=== PATIENT | male | born 1955 | race Caucasian/White ===

== ENCOUNTER 2019-01-29 23:54 | Emergency (ER) | payer OTHER ==
[~2019-01-29] VITALS: Ht 175.3 cm; Wt 86.2 kg
[2019-01-29 23:54] VITALS: BP 225/102
[~2019-01-29 23:54] MED LIST: HUM SUBQ
--- NOTE | 2019-01-29 23:54 | NUR ---
PT CONCETTA ALS. TAKEN TO BED 1
--- NOTE | 2019-01-30 00:10 | NUR ---
PT BIBA C/O LT RIB PAIN AND RT KNEE PAIN S/P FALL AT HOME X2 HRS AGO. 01/06 SHARP PAIN IN LT RIBS. PAIN PROVOKED BY MOVEMENT. DENIES LOC. DENIES CHEST PAIN. PT POSITIONED IN BED FOR COMFORT. RR EVEN AND UNLABORED. VSS AT THIS TIME. MEDHX: DM ALLERGIES: DENIES
[2019-01-30] MEDS ORDERED: fentaNYL 0.05 MG/ML VIAL IM ONE (00:15)
--- NOTE | 2019-01-30 00:44 | NUR ---
PT STATES RELIEF OF PAIN AT THIS TIME. PT POSITIONED UPRIGHT IN A COMFORTABLE POSITION IN BED. SON AT BEDSIDE. VSS. WILL CONTINUE TO MONITOR.
--- NOTE | 2019-01-30 01:46 | NUR ---
PT RESTING IN BED, STATES 2/10 PAIN UPON MOVEMENT. NO FURTHER COMPLAINTS AT THIS TIME. VSS. WILL CONTINUE TO MONITOR.
[2019-01-30 02:24] VITALS: BP 171/81
--- NOTE | 2019-01-30 02:24 | NUR ---
Patient discharged with v/s stable. Written and verbal after care instructions given and explained. Patient alert, oriented and verbalized understanding of instructions. Ambulatory with to home. All questions addressed prior to discharge. ID band removed. Patient advised to follow up with PMD. Rx of ACETAMINOPHEN AND MOTRIN given. Patient educated on indication of medication including possible reaction and side effects. Opportunity to ask questions provided and answered.
== END 2019-01-30 02:24 | disposition home or self-care (01) ==
LOC: MED 23:54
DX: S30.0XXA Contusion of lower back and pelvis, initial encounter (principal); S20.219A Contusion of unspecified front wall of thorax, initial encounter; S80.01XA Contusion of right knee, initial encounter; E11.9 Type 2 diabetes mellitus without complications; I10 Essential (primary) hypertension; Z79.4 Long term (current) use of insulin; W19.XXXA Unspecified fall, initial encounter; Y93.89 Activity, other specified; Y92.89 Other specified places as the place of occurrence of the external cause; Y99.8 Other external cause status
CPT/HCPCS: 71100; 72072; 96372; 99283; J3010